=== PATIENT | female | born 1995 | race Caucasian/White ===

== ENCOUNTER 2025-02-15 12:15 | Emergency (ER) | payer SELFPAY ==
[2025-02-15] MEDS ORDERED: Orphenadrine Citrate 60 MG/2 ML VIAL ONE (13:11)
[2025-02-15 13:35] LABS: CAUTI Indications for Culture Pelvic or flank pain; Glucose, Urine (Dipstick) Normal (Negative); Leukocyte Negative Leu/uL (Negative); Protein, Urine (Dipstick) Negative (Neg-Trace); Specific Gravity, Urine 1.016 (1.002-1.036); WBC/HPF 0-3 HPF (0-3)
[2025-02-15 13:36] LABS: Bacteria/HPF 1+ HPF (None Seen)
[2025-02-15 13:37] LABS: Urine Culture Reflex No No
[2025-02-15 13:40] LABS: Pregnancy Test - Urine (BHCG) Negative (Negative); Pregu Control Background? CLEAR/WHITE (CLR/WHITE); Pregu Control Bar Appear? YES (CONTROL BAR)
[2025-02-15] MEDS ORDERED: Mag-Al 1200 mg/1200 mg/30 ML UDCUP ONE (15:57)
== END 2025-02-15 14:47 | disposition home or self-care (01) ==
LOC: ERS 12:15
DX: N39.0 Urinary tract infection, site not specified (principal); M54.50 Low back pain, unspecified; G89.29 Other chronic pain; F17.290 Nicotine dependence, other tobacco product, uncomplicated; W17.89XA Other fall from one level to another, initial encounter
CPT/HCPCS: 72128; 81001; 81025; 96372; J2360